=== PATIENT | female | born 1955 | race Two or more races ===

== ENCOUNTER 2025-05-30 12:43 | Emergency (ER) | payer MEDICARE, SELFPAY ==
[2025-05-30 12:53] VITALS: BP 188/87; PULSE 61; RESP 18; TEMP 37.1; O2SAT 98; BMI 31.1
--- NOTE | 2025-05-30 12:59 | XR_ITS ---
EXAMINATION: Left wrist 4 views TECHNIQUE: AP, oblique, coned Navicular, lateral left wrist 4 views Date and time: May 30, 2025, 1320 hours INDICATIONS: Patient fell 1 week ago with injury to the wrist, wrist pain. FINDINGS: Acute comminuted intra-articular fracture distal radial metaphysis, mild impaction Carpal bones intact IMPRESSION: Acute comminuted intra-articular fracture distal radial metaphysis
--- NOTE | 2025-05-30 12:59 | XR_ITS ---
Examination: Forearm, left, 2 views. Technique: Forearm, AP, lateral 2 views Date and time of exam: May, 1316 hours INDICATIONS: Injury to the forearm today, forearm pain. FINDINGS: Acute comminuted intra-articular fracture distal radial metaphysis No significant displacement The ulna is intact IMPRESSION: Acute comminuted intra-articular fracture distal radial metaphysis
--- NOTE | 2025-05-30 13:11 | EDNOTE_ITS ---
<Statement entered by Herlinda Mcdaniel MD - 05/30/25 15:59> As co-signing physician, I was present and available for consult prn. I concur with the plan and care as documented by the midlevel provider. Upper Extremity Injury RME/HPI General Chief Complaint: Hand/Wrist Problems Stated Complaint: L) WRIST INJURY FROM FALL Time Seen by Provider: 05/30/25 12:56 Source: patient Arrival date/time: 05/30/25 12:43 69-year-old female with no known medical history presents to the emergency room with a chief complaint of left-sided wrist pain after a ground-level fall that occurred 1 week ago. Mode of arrival: ambulatory Limitations: no limitations Related Data Allergies Allergy/AdvReac Type Severity Reaction Status Date / Time No Known Allergies Allergy Verified 05/30/25 12:45 Review of Systems Review of Systems Systems Reviewed: All systems reviewed, normal except as documented Constitutional Constitutional: Reports system reviewed and no additional complaints, except as documented, Denies fatigue, Denies fever(s), Denies headache(s) and Denies weakness Eyes Eyes: Reports system reviewed and no additional complaints, except as documented, Denies blurry vision and Denies change in vision ENT Ears, Nose, Mouth, and Throat: Reports system reviewed and no additional complaints, except as documented, Denies otalgia, Denies headache(s), Denies nasal congestion, Denies throat swelling and Denies vertigo Cardiovascular Cardiovascular: Reports system reviewed and no additional complaints, except as documented, Denies chest pain, Denies dyspnea and Denies dyspnea on exertion Respiratory Respiratory: Reports system reviewed and no additional complaints, except as documented, Denies chest congestion, Denies cough, Denies dyspnea, Denies dyspnea on exertion and Denies wheezing Gastrointestinal Gastrointestinal: Reports system reviewed and no additional complaints, except as documented, Denies abdominal pain, Denies cramping, Denies nausea and Denies vomiting Genitourinary Genitourinary: Reports system reviewed and no additional complaints, except as documented Musculoskeletal Musculoskeletal: Reports system reviewed and no additional complaints, except as documented, Reports arthralgias, Denies back pain, Reports joint swelling and Reports limited range of motion Integumentary/Breasts Skin/Breast: Reports system reviewed and no additional complaints, except as documented and Denies wounds Neurologic Neurologic: Reports system reviewed and no additional complaints, except as documented, Denies confusion, Denies headache(s), Denies lack of coordination, Denies vertigo and Denies weakness Psychiatric Psychiatric: Reports system reviewed and no additional complaints, except as documented, Denies anxiety, Denies confusion, Denies depression, Denies paranoia, Denies suicidal ideation and Denies tactile hallucinations Endocrine Endocrine: Reports system reviewed and no additional complaints, except as documented and Denies fatigue Hematologic/Lymphatic Hematologic/Lymphatic: Reports system reviewed and no additional complaints, except as documented and Denies lymphadenopathy Allergic/Immunologic Allergic/Immunologic: Reports system reviewed and no additional complaints, except as documented, Denies throat swelling, Denies urticaria and Denies wheezing Past Medical History Social History SMOKING STATUS: Never smoker ED Exam General Limitations: Present no limitations General appearance: Present alert and in no apparent distress Head Head exam: Present atraumatic Eye Eye exam: Present normal appearance, PERRL and EOMI ENT ENT exam: Present normal exam, normal oropharynx and mucous membranes moist Neck Neck exam: Present normal inspection, full ROM and trachea midline Chest Chest inspection: Present normal inspection and symmetric chest wall rise Respiratory Respiratory exam: Present normal lung sounds bilaterally Cardiovascular Cardiovascular exam: Present regular rate, normal rhythm and normal heart sounds Abdominal Exam Abdominal exam: Present soft and normal bowel sounds Extremities Exam Extremities exam: Present normal inspection and full ROM Expanded Upper Extremity Exam Shoulder exam: Present normal inspection Arm exam: Present normal inspection Elbow exam: Present normal inspection Forearm/Wrist exam: Present tenderness and swelling; Absent full ROM Vascular exam: Normal capillary refill Back Exam Back exam: Present normal inspection and full ROM Neurological Exam Neurological exam: Present alert, oriented X3 and CN II-XII intact Psychiatric Psychiatric exam: Present normal affect and normal mood Skin Skin exam: Present warm, dry, intact and normal color Course Quality Measures none Orders Category Date Time Status Splint / Immobilizer STAT Care 05/30/25 15:03 Completed XR forearm LT 2V Stat Exams 05/30/25 12:59 Completed XR wrist comp LT min 3V Stat Exams 05/30/25 12:59 Completed Vital Signs Vital signs: Vital Signs Temperature 98.7 F 05/30/25 12:53 Pulse Rate 61 05/30/25 12:53 Respiratory Rate 18 05/30/25 12:53 Blood Pressure 188/87 H 05/30/25 12:53 Pulse Oximetry (%) 98 05/30/25 12:53 Oxygen Delivery Method Room Air 05/30/25 12:53 Extremity Injury MDM Narrative MDM Narrative:: 69-year-old female with no known medical history presents to the emergency room with a chief complaint of left-sided wrist pain after a ground-level fall that occurred 1 week ago. Patient is hemodynamically stable and in no apparent distress Physical examination shows tenderness swelling and limited range of motion to the patient's left wrist. Patient came in with a left wrist brace and states she had a ground-level fall last week where she tried to break her fall and ended up injuring her wrist. Patient has a history of carpal tunnel surgery done on this wrist. X-ray of the wrist was completed and shows an acute comminuted intra-articular fracture of the distal radial metaphysis. A volar splint was put in place and the patient was educated to follow-up with primary care provider as a referral for an nursing education specialist may be indicated Patient was discharged and educated to follow-up with primary care provider in the next 24 to 48 hours and return to the emergency room for any evidence of worsening signs or symptoms Patient data External records reviewed:: [facility] previous records Clinical information provided by:: patient Social determinants that could affect healthcare access:: none Patient has the following chronic illnesses:: No chronic illness How is presenting disease/condition affected by chronic disease/condition?: no chronic disease Evaluation data The following diagnostics were reviewed and interpreted by me:: lab results and radiology exam(s) Lab and/or radiology exams considered but not ordered:: Labs and radiology thus considered and ordered Interpretation Summary: X-ray wrist-FINDINGS: Acute comminuted intra-articular fracture distal radial metaphysis, mild impaction Carpal bones intact IMPRESSION: Acute comminuted intra-articular fracture distal radial metaphysis Medications / Prescriptions Medications or Prescriptions considered but not ordered:: Medication given Medication administrations:: Medication not given Consultations Consultation(s) initiated? (list below): No Diagnosis Upper Extremity Injury Differential Diagnosis: sprain and strain of wrist, fracture of wrist and other Most likely diagnosis given after review of the tests above:: Distal radial fracture Admission Indicated Admission indicated?: not indicated Admission Request Was there a request for admission?: No Disposition Plan Disposition Plan: Discharge Discharge Attestation Discharge Attestation: The patient and all family members were given an opportunity to ask questions and understood the discharge instructions. Discharge instructions specifically effects, indications for sooner follow up or return to the emergency department, and the expected course of current diagnosis. Patient condition: Stable Discharge Plan Plan Patient Disposition: HOME (Self Care) Discharge Disposition comment: Stable Prescriptions/Referrals Referrals: Demarco Estrada FNP [Primary Care Provider] - In 1 week Problem List Clinical Impression: Distal radial fracture Patient/Caregiver Discharge Instructions Education Materials: ED Forearm Fx Wo Redu Additional Instructions: Por favor, consulte con urbina m?dico de cabecera en las pr?ximas 24 a 48 horas. Urbina radiograf?a mostr? juancho fractura de mu?eca. Mantenga la f?carlos puesta hasta que urbina especialista en ortopedia le d? el zachary. Si observa cualquier signo de empeoramiento de los signos o s?ntomas, acuda inmediatamente a urgencias. Print Language: Citizen Of [place] Stand Alone Forms: Dana Award Info., Patient Portal Info Letter PA/OSBALDO Supervising Physician SYLVIA/OSBALDO Supervising Physician: Dr. MCDANIEL
== END 2025-05-30 15:28 | disposition home or self-care (01) ==
PROVIDERS: Emergency Provider Nurse Practitioner Family
DX: S52.572A Other intraarticular fracture of lower end of left radius, initial encounter for closed fracture (principal); W18.30XA Fall on same level, unspecified, initial encounter
CPT/HCPCS: 29125; 73090; 73110; 99284